=== PATIENT | female | born 1960 | race Caucasian/White ===

== ENCOUNTER 2022-04-24 15:05 | Emergency (ER) | payer MEDICAID ==
[~2022-04-24] VITALS: Ht 162.6 cm; Wt 76.0 kg
[2022-04-24 15:48] LABS: BASOPHILS % 0.4 % (0.0-2.0); EOSINOPHILS % 2.2 % (0.0-5.0); HEMATOCRIT. 40.6 % (36.0-48.0); HEMOGLOBIN. 13.6 g/dL (12.0-16.0); LYMPHOCYTES % 15.9 % (20.0-50.0); MEAN CORPUSCULAR HEMOGLOBIN 29.4 pg (28.0-32.0); MEAN CORPUSCULAR VOLUME 87.5 fL (81.0-99.0); MEAN PLATELET VOLUME 7.6 fl (7.4-10.4); NEUTROPHILS % 75.5 % (40.0-76.0); PLATELET 305 x1000/uL (130-400); RED BLOOD CELL COUNT 4.64 mill/uL (4.2-5.4); RED CELL DISTRIBUTION WIDTH 14.3 % (11.6-14.6)
[2022-04-24 15:53] LABS: CHLORIDE 102 mEq/L (98-107)
[2022-04-24] MEDS ORDERED: KETOROLAC 15MG/ML VIAL IV ONE (17:15)
[2022-04-24 17:39] VITALS: BP 124/61
[2022-04-24] MEDS ORDERED: MELO-105 MT (18:45)
== END 2022-04-24 19:04 | disposition home or self-care (01) ==
LOC: ER 15:05 → CANBEDREQ 04-25 03:47
DX: M19.011 Primary osteoarthritis, right shoulder (principal); R51.9 Headache, unspecified; I10 Essential (primary) hypertension; Z88.0 Allergy status to penicillin
CPT/HCPCS: 36415; 70450; 71045; 73030; 80053; 84484; 85025; 93005; 96374; 99285; J1885